=== PATIENT | female | born 1990 | race African-American/Black ===

== ENCOUNTER 2016-06-24 14:30 | Emergency (ER) | payer SELFPAY ==
[2016-06-24] MEDS ORDERED: DIAZEPAM 2 MG TABLET PO ONE (14:52)
--- NOTE | 2016-06-24 15:00 | ER Document Report ---
HPI - HPI Patient complains to provider of: torticollis Pain Level: 3 Context: Patient is a 26 old female presents with Department complaining of neck pain. Denies any injury.. She's had these symptoms since Friday. Patient states that is waking up every morning with a neck and she's not able to the left of the right or move her chin up or down. Still taking Motrin which gives her enough relief to slightly move her head. She admits to intermittent headaches but is resolved with Motrin. She denies any light sensitivity, sound sensitivity, vision changes, nausea, vomiting, dizziness or syncope Denies any other past medical history Does not have a primary care provider - REPRODUCTIVE LMP: March, states irregular Reproductive: DENIES: : - DERM Skin Color: Normal Past Medical History - Social History Smoking Status: Unknown if Ever Smoked Family History: Reviewed & Not Pertinent Patient has suicidal ideation: No Patient has homicidal ideation: No Pulmonary Medical History: Reports: Hx Asthma, Hx Pneumonia Renal/ Medical History: Denies: Hx Peritoneal Dialysis - Immunizations Hx Diphtheria, Pertussis, Tetanus Vaccination: Yes Vertical Provider Document - CONSTITUTIONAL Agree With Documented VS: Yes Exam Limitations: No Limitations General Appearance: WD/WN, No Apparent Distress - INFECTION CONTROL TRAVEL OUTSIDE OF THE [place] IN LAST 30 DAYS: No - HEENT HEENT: Atraumatic, Normal ENT Exam, Normocephalic, PERRLA - NECK Neck: Other - Patient with evidence of right-sided torticollis. - RESPIRATORY O2 Sat by Pulse Oximetry: 100 - MUSCULOSKELETAL/EXTREMETIES Musculoskeletal/Extremeties: MAEW, FROM, Non-Tender, No Edema. negative: Eccymosis - NEURO Level of Consciousness: Awake, Alert, Appropriate Motor/Sensory: No Motor Deficit, No Sensory Deficit Course - Re-evaluation Re-evalutation: 06/24/16 14:56 Patient with evidence of right-sided torticollis. Will treat with by mouth Valium, discharged home and can follow-up with primary care as needed if symptoms persist. Patient educated on home remedies and she expresses understanding. - Vital Signs Vital signs: Temp Pulse Resp BP Pulse Ox 98.1 F 81 16 166/113 H 100 06/24/16 14:38 06/24/16 14:38 06/24/16 14:38 06/24/16 14:38 06/24/16 14:38 Discharge - Discharge Clinical Impression: Cervical dystonia Condition: Good Disposition: HOME, SELF-CARE Instructions: Torticollis ([facility]), Use of Ukyh-Vny-Lnfudcf Ibuprofen ([facility]), Warm Packs ([facility]) Prescriptions: Diazepam [Valium 2 mg Tablet] 2 mg PO TID 3 Days Forms: Elevated Blood Pressure, Return to Work Referrals: SAUL DUDLEY MD [[facility]] - Follow up as needed
[2016-06-24 16:07] VITALS: BP 156/101
== END 2016-06-24 16:05 | disposition home or self-care (01) ==
LOC: ER 14:30
DX: G24.9 Dystonia, unspecified (principal); M43.6 Torticollis; M54.2 Cervicalgia; R51 Headache; J45.909 Unspecified asthma, uncomplicated
CPT/HCPCS: 99283; J3490

== ENCOUNTER 2016-10-21 14:03 | Emergency (ER) | payer SELFPAY ==
[2016-10-21 14:09] VITALS: BP 160/94
[2016-10-21] MEDS ORDERED: LIDOCAINE 1% INJ-PF (10 MG/ML) 30 ML SDV INJ ONE (15:18)
[2016-10-21] MEDS ORDERED: CEPHALEXIN 500 MG CAPSULE PO ONE (15:19)
[2016-10-21] MEDS ORDERED: OXYCODONE-ACETAMINOPHEN 5-325 MG TABLET PO ONE (15:19)
--- NOTE | 2016-10-21 16:16 | ER Document Report ---
ED Skin Rash/Insect Bite/Abscs - General Chief Complaint: Abscess Stated Complaint: ARM PAIN Time Seen by Provider: 10/21/16 14:59 Notes: Patient is a 26-year-old female presents emergency department complaining of an abscess in her right arm. Patient states that she noticed her some in terms of pain but it is increased in size and swelling since Friday. Patient denies any fever, chills, drainage from the site. Patient denies any history of MRSA, hydrated soup edema. Patient states the last time she had an abscess with about 5 years ago under her left arm. States she has not had surgery for this previously. Patient denies any other medical problems. No known drug allergies TRAVEL OUTSIDE OF THE [place] IN LAST 30 DAYS: No - Related Data Allergies/Adverse Reactions: No Known Allergies Allergy (Verified 10/21/16 14:08) Past Medical History - Social History Smoking Status: Never Smoker Family History: Reviewed & Not Pertinent Pulmonary Medical History: Reports: Hx Asthma, Hx Pneumonia Renal/ Medical History: Denies: Hx Peritoneal Dialysis - Immunizations Hx Diphtheria, Pertussis, Tetanus Vaccination: Yes Review of Systems - Review of Systems Constitutional: See HPI Skin: See HPI -: Yes All other systems reviewed and negative Physical Exam - Vital signs Vitals: Temp Pulse Resp BP Pulse Ox 98.8 F 91 16 160/94 H 99 10/21/16 14:07 10/21/16 14:07 10/21/16 14:07 10/21/16 14:07 10/21/16 14:07 - General General appearance: Appears well, Alert In distress: None - Cardiovascular Pulses: Normal: Radial Normal capillary refill: Yes - Extremities General upper extremity: Normal inspection, Nontender, Normal color, Normal ROM , Normal strength, Normal temperature - Neurological Neuro grossly intact: Yes Cognition: Normal Orientation: AAOx4 [place] Coma Scale Eye Opening: Spontaneous [place] Coma Scale Verbal: Oriented [place] Coma Scale Motor: Obeys Commands [place] Coma Scale Total: 15 - Skin Skin irregularity: Abscess Location of irregularity: Extremities - right axilla Irregularity with: Swelling, Tenderness, Induration, Well defined border, Inflammation Course - Re-evaluation Re-evalutation: 10/21/16 16:39 Patient is a 26-year-old female hemodynamic stable, no acute distress and afebrile. I&D performed at the bedside for approximately 10 cc of purulent material. Wound culture sent. Patient will be initiated on antibiotics and instructed to follow-up in 3 days for wound check. Patient expresses understanding. - Vital Signs Vital signs: Temp Pulse Resp BP Pulse Ox 98.8 F 91 16 160/94 H 99 10/21/16 14:07 10/21/16 14:07 10/21/16 14:07 10/21/16 14:07 10/21/16 14:07 Procedures - Incision and Drainage Right Arm Time completed: 16:25 - axilla Type: Simple, Single Anesthetic type: 1% Lidocaine mL's of anesthetic: 5 Blade size: 11 I&D procedure: Betadine prep applied Incision Method: Incision made by scalpel Amount/type of drainage: 10cc purulent material Discharge - Discharge Clinical Impression: Abscess Condition: Good Disposition: HOME, SELF-CARE Instructions: Abscess ([facility]), Cephalexin ([facility]), Post Incision and Drainage Additional Instructions: Please return to the emergency department or follow-up with urgent care for wound check in 3 days Prescriptions: Cephalexin Monohydrate [Keflex 500 mg Capsule] 500 mg PO QID #20 capsule Forms: Elevated Blood Pressure [facility]errals: [facility] [NO LOCAL MD] - Follow up as needed [facility] [Provider Group] - Follow up as needed
[2016-10-21] MEDS ORDERED: HYDROCODONE/ACETAMINOPHEN 5-325 MG 6 TAB/DSPK PO PRN (16:41)
== END 2016-10-21 17:35 | disposition home or self-care (01) ==
LOC: ER 14:03
PROC: 0H9BXZZ Drainage of Right Upper Arm Skin, External Approach (ICD-10-PCS; principal; 2016-10-21)
DX: L02.413 Cutaneous abscess of right upper limb (principal); M79.89 Other specified soft tissue disorders; Z86.14 Personal history of Methicillin resistant Staphylococcus aureus infection
CPT/HCPCS: 99283; 87070; 87205; 87075; 87077; 87186; 10060; J3490

== ENCOUNTER 2016-10-24 12:11 | Emergency (ER) | payer SELFPAY ==
[2016-10-24 12:15] VITALS: BP 144/86
--- NOTE | 2016-10-24 12:42 | ER Document Report ---
ED Suture/Wound Recheck - General Chief Complaint: Wound Recheck Stated Complaint: FOLLOW UP ON ABSCESS Time Seen by Provider: 10/24/16 12:29 Mode of Arrival: Ambulatory Information source: Patient Notes: 26-year-old female presents to ED for recheck of abscess in right axilla she states she was in the emergency room for an I&D on Friday. She states she is continuing to take her antibiotics Keflex. She denies any pain drainage redness at this time. TRAVEL OUTSIDE OF THE [place] IN LAST 30 DAYS: No - HPI Previous ED treatment: I&D of abscess Antibiotics given previously: Prescription Quality of pain: No pain Severity: None Pain Level: Denies Symptoms since procedure: No complaints Exacerbated by: Denies Relieved by: Denies - Related Data Allergies/Adverse Reactions: No Known Allergies Allergy (Verified 10/24/16 12:13) Past Medical History - General Information source: Patient - Social History Smoking Status: Never Smoker Cigarette use (# per day): No Chew tobacco use (# tins/day): No Smoking Education Provided: No Family History: Reviewed & Not Pertinent Patient has suicidal ideation: No Patient has homicidal ideation: No - Past Medical History Cardiac Medical History: Reports: None Pulmonary Medical History: Reports: Hx Asthma, Hx Pneumonia EENT Medical History: Reports: None Neurological Medical History: Reports: None Endocrine Medical History: Reports: None Renal/ Medical History: Reports: None Malignancy Medical History: Reports: None GI Medical History: Reports: None Musculoskeltal Medical History: Reports None Skin Medical History: Reports None Psychiatric Medical History: Reports: None Traumatic Medical History: Reports: None Infectious Medical History: Reports: None Surgical Hx: Negative Past Surgical History: Reports: None - Immunizations Immunizations up to date: Yes Hx Diphtheria, Pertussis, Tetanus Vaccination: Yes Physical Exam - Vital signs Vitals: Temp Pulse Resp BP Pulse Ox 98.5 F 85 14 144/86 H 99 10/24/16 12:13 10/24/16 12:13 10/24/16 12:13 10/24/16 12:13 10/24/16 12:13 Interpretation: Normal - General General appearance: Appears well, Alert - HEENT Head: Normocephalic, Atraumatic Eyes: Normal Pupils: PERRL - Respiratory Respiratory status: No respiratory distress Chest status: Nontender Breath sounds: Normal Chest palpation: Normal - Cardiovascular Rhythm: Regular Heart sounds: Normal auscultation Murmur: No - Abdominal Inspection: Normal Distension: No distension Bowel sounds: Normal Tenderness: Nontender Organomegaly: No organomegaly - Back Back: Normal, Nontender - Extremities General upper extremity: Normal inspection, Nontender, Normal color, Normal ROM , Normal temperature General lower extremity: Normal inspection, Nontender, Normal color, Normal ROM , Normal temperature, Normal weight bearing. No: Kiah's sign - Neurological Neuro grossly intact: Yes Cognition: Normal Orientation: AAOx4 [place] Coma Scale Eye Opening: Spontaneous [place] Coma Scale Verbal: Oriented [place] Coma Scale Motor: Obeys Commands [place] Coma Scale Total: 15 Speech: Normal Motor strength normal: LUE, RUE, LLE, RLE Sensory: Normal - Psychological Associated symptoms: Normal affect, Normal mood - Skin Skin Temperature: Warm Skin Moisture: Dry Skin Color: Normal Skin irregularity: Abscess - Healing no drainage no redness no tenderness right axilla Course - Vital Signs Vital signs: Temp Pulse Resp BP Pulse Ox 98.5 F 85 14 144/86 H 99 10/24/16 12:13 10/24/16 12:13 10/24/16 12:13 10/24/16 12:13 10/24/16 12:13 Discharge - Discharge Clinical Impression: Abscess re-check Condition: Stable Disposition: HOME, SELF-CARE Instructions: Family Physicians / Practices Additional Instructions: ABSCESS: You have an abscess (boil). This a pus-forming infection, usually due to staph. Some boils may be left to drain on their own, but most require lancing. From the time the tender lump first appears, it may be three or four days before the abscess is ready to [place]. Local heat and rest help at this stage of treatment. An antibiotic may prevent spread of the infection. Once the abscess is opened, packing may be placed into it. This is done so pus is not sealed inside by premature closure of the cavity. The packing will be removed at your follow-up visit or you may be advised to remove it yourself at home. Sometimes this packing must be replaced a few times during healing. The wound will heal with surprisingly little scar. Depending on the size and location of an abscess, healing can take one to four weeks. You may shower and wash the area around the incision site two or three times a day. Antibiotics may be prescribed, but are usually not necessary after an abscess has been drained. If you develop fever, chills, worsening pain, or increasing swelling in the area, call the doctor or return immediately. CEPHALEXIN: The antibiotic you've been prescribed is a member of the cephalosporin class. Please continue taking this medication until the medication is complete. This type of antibiotic covers a wide variety of infections, including those of the skin, lungs, and urinary tract. It's useful for staph infections. This antibiotic is slightly similar to the penicillin family. In rare cases , a person who is allergic to penicillin will also be allergic to this medication. If you have had a severe allergic reaction to penicillin, and have not taken this antibiotic since that time, notify your doctor. Antibiotics which cover many germs ("broad spectrum" antibiotics) are more likely to cause diarrhea or "yeast" infections. Women prone to vaginal yeast problems may suffer an attack after taking this antibiotic. In infants, oral thrush (white spots "stuck" on the cheek) or yeast diaper rash may result. See your doctor if these problems occur. Call at once if you develop itching, hives , shortness of breath, or lightheadedness. Epsom Salt Soaks Soak the wound area in a container of warm epsom salt water. If you can't get the wound area into a bucket or malcolm, use a folded towel soaked in the epsom salt solution and apply to the area. Use clean hot tap water (about the temperature of a very warm bath), mixing in about one (1) teaspoon for every pint of water. Two gallon --> 16 teaspoons Epsom Salts One gallon --> 8 teaspoons Epsom Salts Two quarts --> 4 teaspoons Epsom Salts One quart --> 2 teaspoons Epsom Salts Soak the wound for about 20 minutes while gently moving it around in the water. Repeat this four (4) times a day. FOLLOW-UP CARE: Most simple abscesses will not require a follow up visit. If you had packing placed in the abscess, remove it as instructed by the physician. If you have been referred to a physician for follow-up care, call the physicians office for an appointment as you were instructed or within the next two days. If you experience worsening or a significant change in your symptoms, return to the Emergency Department at any time for re-evaluation. Forms: Elevated Blood Pressure
== END 2016-10-24 12:55 | disposition home or self-care (01) ==
LOC: ER 12:11
DX: L02.411 Cutaneous abscess of right axilla (principal)
CPT/HCPCS: 99282

== ENCOUNTER 2018-04-07 19:22 | Emergency (ER) | payer OTHER ==
--- NOTE | 2018-04-07 23:08 | ER Document Report ---
ED General - General Chief Complaint: Neck Pain >24hrs old Stated Complaint: NECK PAIN Time Seen by Provider: 04/07/18 22:46 Notes: Patient is a 27-year-old female presents with complaint of neck pain. Pain is on the left side of her neck. She has noticed it over a week ago when she woke up and she had some stiffness and pain to left side of her neck. When if she turns her head to the right causes pain that shoots down the left side of her neck and occasionally some numbness into the left arm that stops at the elbow. No other symptoms. No trauma. No injuries. No history of cervical disc disease. No other complaints at this time. She says she takes Motrin Tylenol for the pain and this does improve the pain but when the medicine wears off the pain will come back. TRAVEL OUTSIDE OF THE [place] IN LAST 30 DAYS: No - Related Data Allergies/Adverse Reactions: No Known Allergies Allergy (Verified 10/24/16 12:13) Past Medical History - Social History Smoking Status: Unknown if Ever Smoked Frequency of alcohol use: None Drug Abuse: None Family History: Reviewed & Not Pertinent Patient has suicidal ideation: No Patient has homicidal ideation: No Pulmonary Medical History: Reports: Hx Asthma, Hx Pneumonia Renal/ Medical History: Denies: Hx Peritoneal Dialysis - Immunizations Immunizations up to date: Yes Hx Diphtheria, Pertussis, Tetanus Vaccination: Yes Review of Systems - Review of Systems Notes: My Normal Review Basic REVIEW OF SYSTEMS: CONSTITUTIONAL : Denies fever, chills, or sweats. Denies recent illness. MUSCULOSKELETAL: Neck pain SKIN: Denies rash or skin lesions. NEUROLOGICAL: Denies altered mental status or loss of consciousness. Denies headache. Denies weakness or paralysis or loss of use of either side. Denies problems with gait or speech. No weakness into the upper extremities. Mild numbness that goes from the shoulder to the elbow on the left side. ALL OTHER SYSTEMS REVIEWED AND NEGATIVE. Physical Exam - Vital signs Vitals: Temp Pulse Resp BP Pulse Ox 98.5 F 83 16 172/104 H 100 04/07/18 19:51 04/07/18 19:51 04/07/18 19:51 04/07/18 19:51 04/07/18 19:51 - Notes Notes: General Appearance: Well nourished, alert, cooperative, no acute distress, no obvious discomfort. Well-appearing. Vitals: reviewed, See vital signs table. Head: no swelling or tenderness to the head Eyes: PERRL, EOMI, Conjuctiva clear Neck: No significant pain but patient of the neck; however, patient's pain is easily reproducible when I have her turn her head to the right. Extremities: strength 5/5 in all extremities, good pulses in all extremities, no swelling or tenderness in the extremities, no edema. Neuro: speech clear, oriented x 3, normal affect, responds appropriately to questions. Cranial nerves II through XII are intact. Distal sensation intact. Good strength in both upper extremities. Course - Re-evaluation Re-evalutation: 04/08/18 06:46 Suspect the patient has a cervical muscle strain in the left side of her neck is contributing to the pain that shoots down into the left arm and is worse when she turns her head to the left. I informed her there is a possibility she could have it disc or injury pinching a nerve in her neck however she has had no trauma or injuries and the pain started just after getting up from sleeping. I will have her continue take Tylenol and Motrin. Talked about using cold warm compresses. I informed her to follow-up closely with her doctor this coming week for reevaluation. If she continues to have problems or pain and she may eventually need referral for an MRI. Patient encouraged to return to ER if she has worsening of her symptoms or weakness into her left upper extremity. Patient agrees with plan and will be discharged home. Dictation of this chart was performed using voice recognition software; therefore, there may be some unintended grammatical errors. - Vital Signs Vital signs: Temp Pulse Resp BP Pulse Ox 98.6 F 89 18 168/87 H 98 04/07/18 23:17 04/07/18 23:17 04/07/18 23:17 04/07/18 23:17 04/07/18 23:17 Discharge - Discharge Clinical Impression: Neck pain Condition: Good Disposition: HOME, SELF-CARE Additional Instructions: Please return to the ER immediately if you develop weakness into your hand, worsening pain, or feel unwell. Please follow up with a primary care doctor in 1-2 weeks for reevaluation. Please take Ibuprofen 400mg every 6 hours with food and tylenol 500mg every 4 hours. Alterenate warm and cold compresses over the neck. Do not leave compresses on for more than 20 minutes at a time. Prescriptions: Metaxalone [Skelaxin 800 mg Tablet] 800 mg PO ASDIR PRN #20 tablet PRN Reason:
[2018-04-07 23:18] VITALS: BP 168/87
== END 2018-04-07 23:18 | disposition home or self-care (01) ==
LOC: ER 19:22
DX: M54.2 Cervicalgia (principal)
CPT/HCPCS: 99283

== ENCOUNTER 2018-10-22 12:27 | Emergency (ER) | payer OTHER ==
--- NOTE | 2018-10-22 12:54 | ER Document Report ---
ED Medical Screen (RME) - General Chief Complaint: Vaginal Pain Stated Complaint: VAGINAL PAIN TRAVEL OUTSIDE OF THE [place] IN LAST 30 DAYS: No - HPI Notes: 10/22/18 12:52 Patient is a 28-year-old female with history of ovarian cyst who presents complaining of mid lower pelvic pain that is been present for the past 6 days and is described as sharp. Patient states that the pain does not radiate. Patient states that she is currently on her menstrual cycle, but states that this is not a typical pain for her. She is urinating normally and having normal bowel movements. Patient has not had any vaginal odor or discharge otherwise. She is able to eat and drink without difficulty. No surgical history to her abdomen. Denies SNYDER, fever, neck pain, URI, CP, SOB, dysuria, back pain, or rash. I have treated and performed a rapid initial assessment of this patient. A comprehensive ED assessment and evaluation of the patient, analysis of test results and completion of medical decision making process will be conducted by additional ED providers. PHYSICAL EXAMINATION: GENERAL: Well-appearing, well-nourished and in no acute distress. LUNGS: Breath sounds clear to auscultation bilaterally and equal. No wheezes rales or rhonchi. HEART: Regular rate and rhythm without murmurs, rubs, gallops. ABDOMEN: Soft, nondistended abdomen. No guarding, no rebound. Normal bowel sounds present. No CVA tenderness bilaterally. + lower mid pelvic tenderness (cannot elicit thorough abd exam w/o bed, however). - Related Data Allergies/Adverse Reactions: No Known Allergies Allergy (Verified 10/22/18 12:28) Past Medical History Pulmonary Medical History: Reports: Hx Asthma, Hx Pneumonia Renal/ Medical History: Denies: Hx Peritoneal Dialysis - Immunizations Immunizations up to date: Yes Hx Diphtheria, Pertussis, Tetanus Vaccination: Yes Physical Exam - Vital signs Vitals: Temp Pulse Resp BP Pulse Ox 98.5 F 86 14 166/99 H 100 10/22/18 12:36 10/22/18 12:36 10/22/18 12:36 10/22/18 12:36 10/22/18 12:36 Course - Vital Signs Vital signs: Temp Pulse Resp BP Pulse Ox 98.5 F 86 14 166/99 H 100 10/22/18 12:36 10/22/18 12:36 10/22/18 12:36 10/22/18 12:36 10/22/18 12:36
[2018-10-22 13:51] LABS: BILIRUBIN,URINE NEGATIVE (NEGATIVE); GLUCOSE, URINE NEGATIVE (NEGATIVE); KETONES,URINE NEGATIVE (NEGATIVE); LEUKOCYTE ESTERASE,URINE TRACE (NEGATIVE); NITRITE,URINE NEGATIVE (NEGATIVE); PROTEIN,URINE 100 mg/dL (NEGATIVE); URINE SPECIFIC GRAVITY 1.016; UROBILINOGEN,URINE NEGATIVE mg/dL (<2.0)
[2018-10-22 13:52] LABS: APPEARANCE,URINE CLOUDY; COLOR,URINE RED
[2018-10-22 13:53] LABS: ALANINE AMINOTRANSFERASE 22 U/L (9-52); ALBUMIN 4.5 g/dL (3.5-5.0); ALKALINE PHOSPHATASE 104 U/L (38-126); ANION GAP 10 (5-19); ASPARTATE AMINO TRANSFERASE 24 U/L (14-36); BILIRUBIN,DIRECT 0.3 mg/dL (0.0-0.4); BILIRUBIN,TOTAL 0.4 mg/dL (0.2-1.3); BLOOD UREA NITROGEN 8 mg/dL (7-20); CALCIUM 9.6 mg/dL (8.4-10.2); CARBON DIOXIDE 29 mmol/L (22-30); CHLORIDE 104 mmol/L (98-107); GLUCOSE 95 mg/dL (75-110); POTASSIUM 3.7 mmol/L (3.6-5.0); TOTAL PROTEIN 7.7 g/dL (6.3-8.2)
[2018-10-22 14:02] LABS: ABSOLUTE LYMPHOCYTES (AUTO) 2.1 10^3/uL (0.5-4.7); ABSOLUTE MONOCYTES (AUTO) 0.7 10^3/uL (0.1-1.4); ABSOLUTE NEUT (AUTO) 6.8 10^3/uL (1.7-8.2); BASOPHILS % (AUTO) 0.3 % (0-2); EOSINOPHILS % (AUTO) 0.2 % (0-6); HEMATOCRIT 37.5 % (36.0-47.0); HEMOGLOBIN 12.3 g/dL (12.0-15.5); LYMPHOCYTES % (AUTO) 21.3 % (13-45); MEAN CORPUSCULAR HEMOGLOBIN 27.2 pg (27.0-33.4); MEAN CORPUSCULAR HGB CONC 32.7 g/dL (32.0-36.0); MEAN CORPUSCULAR VOLUME 83 fl (80-97); MONOCYTES % (AUTO) 7.2 % (3-13); PLATELET COUNT 343 10^3/uL (150-450); RED BLOOD COUNT 4.51 10^6/uL (3.72-5.28); RED CELL DISTRIBUTION WIDTH 15.7 % (11.5-14.0); TOTAL CELLS COUNTED % (AUTO) 100 %; WHITE BLOOD COUNT 9.6 10^3/uL (4.0-10.5)
--- NOTE | 2018-10-22 15:02 | RADIOLOGY REPORT (SQ) ---
EXAM DESCRIPTION: U/S NON OB PEL TV W/DOPPLER COMPLETED DATE/TIME: 10/22/2018 2:20 pm REASON FOR STUDY: mid pelvic pain COMPARISON: 11/13/2013 CT abdomen pelvis TECHNIQUE: Dynamic and static grayscale images acquired of the pelvis via transvaginal approach and recorded on PACS. Additional selected color Doppler and spectral images recorded. LIMITATIONS: None. FINDINGS: UTERUS: Contour normal. No mass. Uterus measures 8 x 5 x 4 cm in size. ENDOMETRIAL STRIPE: No focal or generalized thickening. No masses. Endometrial stripe 8 to 9 mm in t hickness. CERVIX: No nabothian cysts. RIGHT OVARY AND DOPPLER: Normal size, 3.1 x 3.3 x 3 cm in size. Normal arterial vascular flow without evidence for torsion. There is a complex cyst with thin septations and low level internal echoes wi thin the right ovary, 2.1 x 2 cm in size likely a hemorrhagic cyst. There is small amount of fluid i n the right adnexa and posterior cul-de-sac, question recent right ovarian cyst rupture. This findin g was discussed with Jasson Jain in the emergency room. LEFT OVARY AND DOPPLER: Normal size, 2.5 x 2 x 2.2 cm in size. No worrisome masses. Normal arterial v ascular flow without evidence for torsion. FREE FLUID: Small amount of free fluid in the right adnexa and posterior cul-de-sac. No debris. OTHER: No other significant finding. IMPRESSION: Hemorrhagic cyst right ovary No right ovary ultrasound evidence of torsion Small amount right adnexal and pelvic cul-de-sac free fluid, question recently ruptured right ovarian cyst. Findings discussed with the emergency room caregiver. COMMENT: Negative test, no fever or elevated white blood cell count TECHNICAL DOCUMENTATION: JOB ID: [id number] [employer]- All Rights Reserved Rev-08/08 Reading location - IP/workstation name: [email or web address]
[2018-10-22 15:47] LABS: RBCS (WET MOUNT) 3+ RBCS SEEN; T.VAGINALIS (WET MOUNT) NO TRICHOMONAS SEEN; WBCS (WET MOUNT) 1+ WBCS SEEN; YEAST (WET MOUNT) NO YEAST SEEN
--- NOTE | 2018-10-22 15:52 | ER Document Report ---
ED GI/ - General Chief Complaint: Vaginal Pain Stated Complaint: VAGINAL PAIN Time Seen by Provider: 10/22/18 12:54 Primary Care Provider: [facility] [Provider Group] - Follow up as needed Notes: Patient is a 28-year-old female presents to the emergency department with a chief complaint of suprapubic pain. Patient states the pain developed last Friday and is continued to get worse. Patient reports that it is a sharp squeezing in nature. Patient denies vaginal discharge but states she did start her menstrual cycle on Friday. Patient states she has not been sexually active in over 1 year and is not currently on control. Patient states her last bowel movement was today and normal. Patient denies any nausea, vomiting or diarrhea. Patient states she does have a history of ovarian cyst in 2014 which did rupture. Patient states that at that time she was placed on oral control pills. Patient denies urinary symptoms. Patient denies fever. TRAVEL OUTSIDE OF THE [place] IN LAST 30 DAYS: No - Related Data Allergies/Adverse Reactions: No Known Allergies Allergy (Verified 10/22/18 12:28) Past Medical History - General Information source: Patient - Social History Smoking Status: Never Smoker Chew tobacco use (# tins/day): No Frequency of alcohol use: None Drug Abuse: None - Today Lives with: Family Family History: Reviewed & Not Pertinent Patient has suicidal ideation: No Patient has homicidal ideation: No - Past Medical History Cardiac Medical History: Reports: None Pulmonary Medical History: Reports: Hx Asthma, Hx Pneumonia EENT Medical History: Reports: None Neurological Medical History: Reports: None Endocrine Medical History: Reports: None Renal/ Medical History: Reports: None. Denies: Hx Peritoneal Dialysis Malignancy Medical History: Reports: None GI Medical History: Reports: None Musculoskeletal Medical History: Reports None Skin Medical History: Reports None Psychiatric Medical History: Reports: None Traumatic Medical History: Reports: None Infectious Medical History: Reports: None Surgical Hx: Negative - Immunizations Immunizations up to date: Yes Hx Diphtheria, Pertussis, Tetanus Vaccination: Yes Review of Systems - Review of Systems Constitutional: No symptoms reported EENT: No symptoms reported Cardiovascular: No symptoms reported Respiratory: No symptoms reported Gastrointestinal: No symptoms reported Genitourinary: No symptoms reported Female Genitourinary: See HPI Musculoskeletal: No symptoms reported Skin: No symptoms reported Hematologic/Lymphatic: No symptoms reported Neurological/Psychological: No symptoms reported Physical Exam - Vital signs Vitals: Temp Pulse Resp BP Pulse Ox 98.5 F 86 14 166/99 H 100 10/22/18 12:36 10/22/18 12:36 10/22/18 12:36 10/22/18 12:36 10/22/18 12:36 Interpretation: Hypertensive - Notes Notes: GENERAL: Well-appearing, well-nourished and in no acute distress. HEAD: Atraumatic, normocephalic. EYES: Pupils equal round and reactive to light, extraocular movements intact, sclera anicteric, conjunctiva are normal. ENT: TMs normal, nares patent, oropharynx clear without exudates. Moist mucous membranes. NECK: Normal range of motion, supple without lymphadenopathy or JVD. LUNGS: Breath sounds clear to auscultation bilaterally and equal. No wheezes rales or rhonchi. HEART: Regular rate and rhythm without murmurs, rubs or gallops. ABDOMEN: Soft, nontender, normoactive bowel sounds. + mid-suprapubic tenderness. No guarding, no rebound. No masses appreciated. BACK: No cervical, thoracic, lumbar midline tenderness. No saddle anesthesia, normal distal neurovascular exam. GENITOURINARY: Deferred. EXTREMITIES: Normal range of motion, no pitting or edema. No clubbing or cyanosis. NEUROLOGICAL: Cranial nerves II through XII grossly intact. Normal speech, normal gait. PSYCH: Normal mood, normal affect. SKIN: Warm, Dry, normal turgor, no rashes or lesions noted. Course - Re-evaluation Re-evalutation: 10/22/18 16:26 I did speak with Dr. Tilley the on-call FLAM[employer] SEALER regarding the patient's ultrasound read and impression. He recommends the patient to follow-up with [facility] as they are her ELECTR[employer] FINISHER and to take ibuprofen as needed for pain. 10/22/18 16:35 I did discuss the lab and pelvic results with the patient as well as the ultrasound findings. I did inform her to call and make an appointment with [facility] within the next week to potentially have a repeat ultrasound. Patient given strict return precautions. Patient is nontoxic- appearing in no acute distress at discharge. - Vital Signs Vital signs: Temp Pulse Resp BP Pulse Ox 98.5 F 86 14 166/99 H 100 10/22/18 12:36 10/22/18 12:36 10/22/18 12:36 10/22/18 12:36 10/22/18 12:36 - Laboratory Result Diagrams: 10/22/18 13:06 10/22/18 13:06 Laboratory results interpreted by me: 10/22/18 10/22/18 13:06 13:06 RDW 15.7 H Urine Protein 100 H Urine Blood LARGE H Ur Leukocyte Esterase TRACE H 10/22/18 16:33 Laboratory 10/22/18 10/22/18 10/22/18 13:06 13:06 13:06 WBC 9.6 RBC 4.51 Hgb 12.3 Hct 37.5 MCV 83 MCH 27.2 MCHC 32.7 RDW 15.7 H Plt Count 343 Seg Neutrophils % 71.0 Lymphocytes % 21.3 Monocytes % 7.2 Eosinophils % 0.2 Basophils % 0.3 Absolute Neutrophils 6.8 Absolute Lymphocytes 2.1 Absolute Monocytes 0.7 Absolute Eosinophils 0.0 Absolute Basophils 0.0 Sodium 143.0 Potassium 3.7 Chloride 104 Carbon Dioxide 29 Anion Gap 10 BUN 8 Creatinine 0.84 Est GFR ( Amer) > 60 Est GFR (Non-Af Amer) > 60 Glucose 95 Calcium 9.6 Total Bilirubin 0.4 Direct Bilirubin 0.3 Neonat Total Bilirubin Not Reportable Neonat Direct Bilirubin Not Reportable Neonat Indirect Bili Not Reportable AST 24 ALT 22 Alkaline Phosphatase 104 Total Protein 7.7 Albumin 4.5 Urine Color RED Urine Appearance CLOUDY Urine pH 9.0 Ur Specific [place] 1.016 Urine Protein 100 H Urine Glucose (UA) NEGATIVE Urine Ketones NEGATIVE Urine Blood LARGE H Urine Nitrite NEGATIVE Urine Bilirubin NEGATIVE Urine Urobilinogen NEGATIVE Ur Leukocyte Esterase TRACE H Urine WBC (Auto) 17 Urine RBC (Auto) >182 Squamous Epi Cells Auto 5 Urine Mucus (Auto) FEW Urine Ascorbic Acid NEGATIVE Urine HCG, Qual NEGATIVE Trichomonas (Wet Prep) Vaginal WBC Vaginal RBC Vaginal Yeast 10/22/18 15:40 WBC RBC Hgb Hct MCV MCH MCHC RDW Plt Count Seg Neutrophils % Lymphocytes % Monocytes % Eosinophils % Basophils % Absolute Neutrophils Absolute Lymphocytes Absolute Monocytes Absolute Eosinophils Absolute Basophils Sodium Potassium Chloride Carbon Dioxide Anion Gap BUN Creatinine Est GFR ( Amer) Est GFR (Non-Af Amer) Glucose Calcium Total Bilirubin Direct Bilirubin Neonat Total Bilirubin Neonat Direct Bilirubin Neonat Indirect Bili AST ALT Alkaline Phosphatase Total Protein Albumin Urine Color Urine Appearance Urine pH Ur Specific [place] Urine Protein Urine Glucose (UA) Urine Ketones Urine Blood Urine Nitrite Urine Bilirubin Urine Urobilinogen Ur Leukocyte Esterase Urine WBC (Auto) Urine RBC (Auto) Squamous Epi Cells Auto Urine Mucus (Auto) Urine Ascorbic Acid Urine HCG, Qual Trichomonas (Wet Prep) NO TRICHOMONAS SEEN Vaginal WBC 1+ WBCS SEEN Vaginal RBC 3+ RBCS SEEN Vaginal Yeast NO YEAST SEEN Patient's pelvic specimens did show vaginal RBCs, patient is on her menstrual cycle. - Diagnostic Test Radiology results interpreted by me: 10/22/18 15:59 Transvaginal US 10/22/18 12:52 IMPRESSION: Hemorrhagic cyst right ovary No right ovary ultrasound evidence of torsion Small amount right adnexal and pelvic cul-de-sac free fluid, question recently ruptured right ovarian cyst. Findings [facility] Procedures - Pelvic Exam Pelvic exam Time completed: 15:40 Cultures obtained: Yes Wet prep obtained: Yes Bimanual exam performed: Yes - No CM tenderness Witnessed by: Salud PCT Discharge - Discharge Clinical Impression: Suprapubic abdominal pain Ovarian cyst Qualifiers: Laterality: right Qualified Code(s): N83.201 - Unspecified ovarian cyst, right side Condition: Stable Disposition: HOME, SELF-CARE Additional Instructions: Today you were seen in the emergency department for suprapubic lower abdominal pain. Your lab work was unremarkable and did not show signs of infection. Your urinalysis was unremarkable and did not show a urinary tract infection. The ultrasound did show a right ovarian cyst with fluid. Fluid containing that the cyst has recently ruptured. Please follow-up with your [facility] SE[facility]ER at [facility] within the next week. Please take ibuprofen as needed for pain. Please return to the emergency department if you develop a large amount of vaginal bleeding different from your menstrual cycle, fever, severe abdominal pain, uncontrollable vomiting or any other concerning signs or symptoms. Ovarian Cyst Your examination shows the presence of an ovarian cyst. This is a ball of fluid attached to the ovary. Ovarian cysts in women of child-bearing age are usually innocent. However, the cyst may cause pain when it grows or bursts. An innocent ovarian cyst will usually go away by itself. When the cyst becomes painful, you should rest. Pain medication may be required. Some women find a hot water bottle soothing. The pain usually resolves within one or two days. After menopause, an ovarian cyst may mean a tumor, and requires more aggressive evaluation -- usually surgery is recommended to remove or biopsy the cyst. A very large cyst requires evaluation at any age. Most cysts (even the i nnocent ones) require follow-up examination. Call the doctor or return at any time if the pain increases significantly, if you become faint, or if you experience vaginal bleeding. Prescriptions: Ibuprofen [Motrin 800 mg Tablet] 800 mg PO Q8H PRN #30 tab PRN Reason: Referrals: [facility] [Provider Group] - Follow up as needed
[2018-10-22] MEDS ORDERED: IBUPROFEN 600 MG TABLET PO ONE (16:28)
[2018-10-22 16:34] VITALS: BP 149/97
[2018-10-22 17:20] LABS: CHLAM PCR DETECTED (NOT DETECT)
== END 2018-10-22 16:39 | disposition home or self-care (01) ==
LOC: ER 12:27
DX: N83.201 Unspecified ovarian cyst, right side (principal); R10.2 Pelvic and perineal pain
CPT/HCPCS: 36415; 76830; 80053; 81001; 81025; 85025; 87086; 87210; 87491; 87591; 93976; 99284

== ENCOUNTER 2020-02-23 17:06 | Emergency (ER) | payer OTHER ==
[2020-02-23] MEDS ORDERED: MORPHINE SULFATE 10 MG/ML INJ IV ONE (17:49)
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
[2020-02-23 18:45] LABS: APPEARANCE,URINE CLEAR; BILIRUBIN,URINE NEGATIVE (NEGATIVE); COLOR,URINE STRAW; GLUCOSE, URINE NEGATIVE (NEGATIVE); KETONES,URINE NEGATIVE (NEGATIVE); LEUKOCYTE ESTERASE,URINE SMALL (NEGATIVE); NITRITE,URINE NEGATIVE (NEGATIVE); PROTEIN,URINE 30 mg/dL (NEGATIVE); URINE SPECIFIC GRAVITY 1.009; UROBILINOGEN,URINE NEGATIVE mg/dL (<2.0)
[2020-02-23 18:51] LABS: ABSOLUTE LYMPHOCYTES (AUTO) 2.1 10^3/uL (0.5-4.7); ABSOLUTE MONOCYTES (AUTO) 0.8 10^3/uL (0.1-1.4); ABSOLUTE NEUT (AUTO) 10.3 10^3/uL (1.7-8.2); BASOPHILS % (AUTO) 0.3 % (0-2); EOSINOPHILS % (AUTO) 0.3 % (0-6); HEMATOCRIT 39.4 % (36.0-47.0); HEMOGLOBIN 12.9 g/dL (12.0-15.5); LYMPHOCYTES % (AUTO) 15.6 % (13-45); MEAN CORPUSCULAR HEMOGLOBIN 27.4 pg (27.0-33.4); MEAN CORPUSCULAR HGB CONC 32.7 g/dL (32.0-36.0); MEAN CORPUSCULAR VOLUME 84 fl (80-97); MONOCYTES % (AUTO) 6.2 % (3-13); PLATELET COUNT 338 10^3/uL (150-450); RED BLOOD COUNT 4.71 10^6/uL (3.72-5.28); RED CELL DISTRIBUTION WIDTH 16.1 % (11.5-14.0); SEGMENTED NEUTROPHILS % (AUTO) 77.6 % (42-78); TOTAL CELLS COUNTED % (AUTO) 100 %; WHITE BLOOD COUNT 13.2 10^3/uL (4.0-10.5)
[2020-02-23 19:09] LABS: ALBUMIN 4.9 g/dL (3.5-5.0); ALKALINE PHOSPHATASE 141 U/L (38-126); ANION GAP 8 (5-19); ASPARTATE AMINO TRANSFERASE 32 U/L (14-36); BILIRUBIN,DIRECT 0.2 mg/dL (0.0-0.4); BILIRUBIN,TOTAL 0.4 mg/dL (0.2-1.3); BLOOD UREA NITROGEN 11 mg/dL (7-20); CALCIUM 10.2 mg/dL (8.4-10.2); CARBON DIOXIDE 31 mmol/L (22-30); CHLORIDE 102 mmol/L (98-107); GLUCOSE 161 mg/dL (75-110); POTASSIUM 3.5 mmol/L (3.6-5.0); TOTAL PROTEIN 8.5 g/dL (6.3-8.2)
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
[2020-02-23] MEDS ORDERED: LABETALOL HCL 200 MG TABLET PO ONE (20:06)
[2020-02-23 21:13] VITALS: BP 172/118
== END 2020-02-23 21:53 | disposition home or self-care (01) ==
LOC: ER 17:06
DX: T14.8XXA Other injury of unspecified body region, initial encounter (principal); R10.30 Lower abdominal pain, unspecified; R10.813 Right lower quadrant abdominal tenderness; R10.814 Left lower quadrant abdominal tenderness; R07.89 Other chest pain; M89.8X6 Other specified disorders of bone, lower leg; V43.53XA Car driver injured in collision with pick-up truck in traffic accident, initial encounter; Y93.89 Activity, other specified; I10 Essential (primary) hypertension; J45.909 Unspecified asthma, uncomplicated; R73.9 Hyperglycemia, unspecified
CPT/HCPCS: 99284; 96374; 36415; 83690; 84703; 85025; 80053; 81001; 71046; 72170; 73590; J2270